=== PATIENT | male | born 1950 | race Caucasian/White ===

== ENCOUNTER 2017-01-23 08:16 | Emergency (ER) | payer MEDICARE, OTHER ==
[~2017-01-23] VITALS: Ht 167.6 cm; Wt 68.2 kg
[~2017-01-23 08:16] MED LIST: 00186-0370-20; ADVIL 200MG TA200 MG PO; ASPIRIN; ATIVAN 0.50.5 MG/TAB PO; BLOOD PRESSURE MED; FLOMAX 0.40.4 MG/CAP PO; FLONASE NASAL S16 GM NS; LEVOTHYROXIN0.025 MG PO; LEVOXYL0.05 MG PO; LISINOPRIL20 MG PO; LOTENSIN20 MG PO; NORCO 325 MG-51 TAB PO; PLAVIX 75MG TAB75 MG PO; PREDNISONE20 MG PO; PRILOSEC 20MG20 MG PO; TERAZOSIN5 MG PO; THYROID MED; ZANTAC 150MG T150 MG PO; ZOCOR 10MG10 MG PO; [UNRECOGNIZED DRUG - OTHER]
[2017-01-23 08:21] VITALS: TEMP 98.9
[2017-01-23 09:30] LABS: BASO % 0.5 % (0.0-2.0); EOS # 0.1 (0.0-0.7); EOS % 1.9 % (0-4.0); GRAN # 4.8 (1.4-6.5); GRAN % 65.9 % (42.2-75.2); HEMATOCRIT 46.9 % (42.0-52.0); HEMOGLOBIN 15.4 g/dl (13.5-18.0); LYMPH # 1.6 (1.2-3.4); LYMPH % 21.7 % (20.0-51.0); MEAN CELL VOLUME 88 fl (80.0-100.0); MEAN CORPUSCULAR HEMOGLOBIN 29 pg (27.0-31.0); MEAN CORPUSCULAR HGB CONC 33 g/dl (33.0-37.0); MEAN PLATELET VOLUME 9.5 fl (7.4-10.4); MONO # 0.7 (0.1-0.6); MONO % 9.5 % (1.7-9.3); PLATELET COUNT 194 K/mm3 (130-400); RED BLOOD COUNT 5.35 M/mm3 (4.20-5.60); REDCELL DISTRIBUTION WIDTH-CV 13.2 % (11.5-14.5); WHITE BLOOD COUNT 7.3 K/mm3 (4.8-10.8)
[2017-01-23 09:36] LABS: PH 5 (5-8); SQUAMOUS EPITHELIAL None Seen /hpf; URINE APPEARANCE Clear; URINE BACTERIA None Seen /hpf; URINE BILIRUBIN Negative (NEGATIVE); URINE BLOOD Negative (NEGATIVE); URINE COLOR Yellow; URINE GLUCOSE Negative (NEGATIVE); URINE KETONE Negative (NEGATIVE); URINE RBC 0-2 /hpf; URINE UROBILINOGEN Negative (NEGATIVE); URINE WBC 0-2 /hpf
[2017-01-23 09:39] LABS: ADJUSTED CALCIUM 9.1 mg/dL (8.4-10.2); ALBUMIN 4.5 gm/dL (3.5-5.0); BILIRUBIN,TOTAL 0.9 mg/dL (0.0-1.0); CALCIUM 9.5 mg/dL (8.4-10.2); CREATININE, serum 1.03 mg/dL (0.66-1.25); TOTAL PROTEIN 7.5 gm/dL (6.4-8.2)
[2017-01-23 11:59] VITALS: BP 136/80; PULSE 72
== END 2017-01-23 12:02 | disposition home or self-care (01) ==
LOC: COL.ER 08:16
PROVIDERS: Physician Assistant Medical
DX: R10.31 Right lower quadrant pain (principal); Z86.73 Personal history of transient ischemic attack (TIA), and cerebral infarction without residual deficits; I10 Essential (primary) hypertension; N40.0 Benign prostatic hyperplasia without lower urinary tract symptoms
CPT/HCPCS: Q9967